=== PATIENT | male | born 1945 | race Caucasian/White ===

== ENCOUNTER → 2023-02-22 | Outpatient (REF) | payer MEDICARE, OTHER ==
[2023-02-22 14:09] LABS: VITAMIN B12 LEVEL 369 PG/ML (211-911)
[2023-02-22 14:10] LABS: FOLATE 16.6 NG/ML (>5.4)
== END ==
LOC: M LAB REF 12:34
PROVIDERS: ATTEND Family Medicine
DX: R41.3 Other amnesia (principal)

== ENCOUNTER 2023-12-18 10:39 | Day surgery (SDC) | payer MEDICARE, OTHER ==
[~2023-12-18] VITALS: Ht 175.3 cm; Wt 72.6 kg
[~2023-12-18 10:39] MED LIST: DUPI300I; LR 1,000 ML IV SCH; PRAV80TA2 PO; TAMS1CAP17 PO
[2023-12-18] MEDS: PHENYLEPHRINE 2.5% OPHTH SOL 2ML OD SCH (11:46)
[2023-12-18] MEDS: FLURBIPROFEN 0.03% OPHTH SOLN 2.5 ML OD SCH (11:46)
[2023-12-18] MEDS: TETRACAINE 0.5% OPHTH SOLN 4ML OD SCH (11:46)
[2023-12-18] MEDS: CYCLOPENTOLATE 1% OPHTH SOLN 2ML BTL OD SCH (11:46)
[2023-12-18] MEDS ORDERED: MIDAZOLAM 5MG/ML 1ML VIAL As Ordered ONE (12:29)
[2023-12-18] MEDS: LIDOCAINE 1% SDV 5ML VIAL As Ordered ONE (13:14)
[2023-12-18] MEDS: CEFUROXIME 1MG/0.1ML INTRACAMERAL INJ As Ordered ONE (13:17)
[2023-12-18 13:40] VITALS: BP 152/86; TEMP 97.9; O2SAT 98
== END 2023-12-18 13:54 | disposition home or self-care (01) ==
LOC: M SDC 10:39
PROVIDERS: ATTEND Ophthalmology
DX: H25.11 Age-related nuclear cataract, right eye (principal); E78.00 Pure hypercholesterolemia, unspecified; L40.9 Psoriasis, unspecified; Z79.899 Other long term (current) drug therapy
CPT/HCPCS: 66984; J0697; J2250; V2632

== ENCOUNTER 2024-01-21 06:13 | Emergency (ER) | payer OTHER, MEDICARE ==
[~2024-01-21] VITALS: Ht 175.3 cm; Wt 73.2 kg
[~2024-01-21 06:13] MED LIST changes: -LR 1,000 ML IV SCH
[2024-01-21] MEDS ORDERED: ASPI81CH33 PO (06:20)
[2024-01-21] MEDS ORDERED: DONE10TA90 (06:20)
[2024-01-21 07:23] LABS: BASO % 0.4 % (0.0-1.0); EOS # 0.2 10^3/uL (0.0-0.5); EOS % 3.1 % (0.0-3.0); HEMOGLOBIN 14.8 g/dl (13.5-17.5); LYMPH # 1.7 10^3/uL (1.5-5.0); LYMPH % 22.4 % (24.0-44.0); MEAN CORPUSCULAR HGB CONC 33.6 g/dl (32.0-36.5); MEAN CORPUSCULAR VOLUME 89.2 fl (80.0-96.0); MONO % 12.5 % (2.0-8.0); NEUTROPHILS # 4.8 10^3/uL (1.5-8.5); NEUTROPHILS % 61.5 % (36.0-66.0); PLATELET COUNT, AUTOMATED 220 10^3/uL (150-450); RED BLOOD COUNT 4.93 10^6/uL (4.30-6.10); WHITE BLOOD COUNT 7.8 10^3/uL (4.0-10.0)
[2024-01-21 07:47] LABS: BLOOD UREA NITROGEN 18 MG/DL (9-23); CALCIUM LEVEL 8.8 MG/DL (8.3-10.6); CARBON DIOXIDE LEVEL 28 MMOL/L (20-31); CHLORIDE LEVEL 109 MMOL/L (98-107); CREATININE FOR GFR 0.99 MG/DL (0.70-1.30); GLOMERULAR FILTRATION RATE > 60.0 (>42); GLUCOSE, FASTING 92 MG/DL (74-106); SODIUM LEVEL 141 MMOL/L (136-145)
[2024-01-21] MEDS: KETOROLAC 30 MG/ML 1ML VIAL IV ONE (09:33)
[2024-01-21] MEDS ORDERED: METH-1164 PO (09:35)
[2024-01-21] MEDS ORDERED: ASPE4PAD TOP (09:35)
[2024-01-21 09:46] VITALS: BP 154/80; TEMP 98; O2SAT 99
== END 2024-01-21 09:47 | disposition home or self-care (01) ==
LOC: M ED 06:13
DX: M54.50 Low back pain, unspecified (principal); K40.21 Bilateral inguinal hernia, without obstruction or gangrene, recurrent; Z79.82 Long term (current) use of aspirin; Z79.891 Long term (current) use of opiate analgesic; Z79.899 Other long term (current) drug therapy
CPT/HCPCS: 74176; 80048; 81001; 85025; 96374; 99284; J1885

== ENCOUNTER → 2024-03-19 | Outpatient (CLI) | payer MEDICARE, OTHER ==
[~2024-03-19] MED LIST changes: +ASPE4PAD TOP; +ASPI81CH33 PO; +DONE10TA90; +METH-1164 PO
== END ==
LOC: M CARPUL 08:48
PROVIDERS: ATTEND Family Medicine
DX: I71.20 Thoracic aortic aneurysm, without rupture, unspecified (principal)

== ENCOUNTER → 2025-08-22 | Outpatient (CLI) | payer MEDICARE, BC ==
[~2025-08-22] MED LIST changes: -PRAV80TA2 PO; +PRAV80TA75 PO
== END ==
LOC: M PLAIMG 12:06
PROVIDERS: ATTEND Family Medicine
DX: I71.20 Thoracic aortic aneurysm, without rupture, unspecified (principal)